=== PATIENT | female | born 2005 | race Caucasian/White ===

== ENCOUNTER 2023-04-18 16:39 | Emergency (ER) | payer BC ==
[~2023-04-18] VITALS: Ht 162.6 cm; Wt 68.0 kg
[2023-04-18 17:03] VITALS: BP 126/71; PULSE 99; RESP 18; TEMP 97.6; O2SAT 99
[2023-04-18 17:20] LABS: BILIRUBIN,URINE 1+ (NEGATIVE); LEUKOCYTE ESTERASE ,URINE 1+ (NEGATIVE); NITRATE,URINE NEGATIVE (NEGATIVE); PH,URINE 5.5 (4.5-8.0); UROBILINOGEN,URINE 0.2 E.U./dL (0.2)
[2023-04-18 17:43] LABS: APPEARANCE,URINE CLOUDY; UA COLOR DARK AMBER
[2023-04-18] MEDS ORDERED: TORADOL IM STA (17:50)
[2023-04-18] MEDS ORDERED: TORADOL ONE (17:56)
[2023-04-18 18:06] VITALS: BP 129/74; PULSE 91; RESP 18; TEMP 97.6; O2SAT 99
== END 2023-04-18 18:08 | disposition home or self-care (01) ==
LOC: ER 16:39
DX: R25.2 Cramp and spasm (principal)
CPT/HCPCS: 99284; 96372; 87086; 81001; 81025; J1885; 80048; 85025